=== PATIENT | male | born 1980 | race Two or more races ===

== ENCOUNTER 2024-01-11 13:26 | Emergency (ER) | payer OTHER ==
[~2024-01-11] VITALS: Ht 182.9 cm; Wt 88.2 kg
[2024-01-11 13:34] VITALS: BP 118/71; PULSE 55; RESP 17; TEMP 98.8
[2024-01-11] MEDS: PERTUSS(ACELL),DIPH,TET/PF 0.5 ML SYRINGE [ADULT] IM. ONE (15:50)
[2024-01-11] MEDS: LIDOCAINE 5% TRANSDERMAL PATCH TD ONE (15:51)
[2024-01-11] MEDS: IBUPROFEN 400 MG TABLET PO ONE (15:51)
== END 2024-01-11 16:12 | disposition home or self-care (01) ==
LOC: EMS 13:26
DX: S41.112A Laceration without foreign body of left upper arm, initial encounter (principal); F31.9 Bipolar disorder, unspecified; F20.9 Schizophrenia, unspecified; X58.XXXA Exposure to other specified factors, initial encounter; Y93.89 Activity, other specified; Y92.89 Other specified places as the place of occurrence of the external cause; Y99.8 Other external cause status
CPT/HCPCS: 90471; 90715; 99283